=== PATIENT | male | born 1990 | race American Indian/Alaskan Native ===

== ENCOUNTER 2017-03-30 23:04 | Emergency (ER) | payer OTHER ==
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
[2017-03-31] MEDS ORDERED: FLEXERIL PO ONE (02:59)
[2017-03-31] MEDS ORDERED: NORCO 5/325 PO ONE (02:59)
[2017-03-31 04:29] VITALS: BP 158/103
== END 2017-03-31 05:40 | disposition home or self-care (01) ==
LOC: ED 23:04
DX: I10 Essential (primary) hypertension (principal); R07.89 Other chest pain; V49.49XA Driver injured in collision with other motor vehicles in traffic accident, initial encounter; Y93.9 Activity, unspecified; Y92.9 Unspecified place or not applicable; Y99.9 Unspecified external cause status
CPT/HCPCS: 99282